=== PATIENT | male | born 1960 | race African-American/Black ===

== ENCOUNTER 2019-09-26 10:16 | Inpatient (IN) | payer BC ==
[~2019-09-26] VITALS: Ht 162.6 cm; Wt 86.3 kg
[~2019-09-26 10:16] MED LIST: MECL-75 PO
[2019-09-26 11:01] LABS: BASO # 0.1 x10^3/uL (0.0-0.2); BASO % 1 % (0-3); EOS # 0.2 x10^3/uL (0.0-0.7); EOS % 4 % (0-3); HEMATOCRIT 41.2 % (39.0-53.0); HEMOGLOBIN 13.7 g/dL (13.0-17.5); LYMPH # 2.4 x10^3/uL (1.0-4.8); LYMPH % 45 % (24-48); MEAN CORPUSCULAR HEMOGLOBIN 29 pg (25-35); MEAN CORPUSCULAR HGB CONC 33 g/dL (31-37); MEAN CORPUSCULAR VOLUME 89 fL (79-100); MONO # 0.6 x10^3/uL (0.0-1.1); MONO % 12 % (0-9); NEUT % 38 % (31-73); PLATELET COUNT 255 x10^3/uL (140-400); RED BLOOD COUNT 4.65 x10^6/uL (4.30-5.70); RED CELL DISTRIBUTION WIDTH 14.4 % (11.5-14.5); WHITE BLOOD COUNT 5.2 x10^3/uL (4.0-11.0)
[2019-09-26 11:13] LABS: CALCIUM 8.3 mg/dL (8.5-10.1); GFR 93.2; POTASSIUM 3.8 mmol/L (3.5-5.1)
[2019-09-26 11:19] LABS: ALBUMIN 3.5 g/dL (3.4-5.0); TOTAL BILIRUBIN 0.3 mg/dL (0.2-1.0); TOTAL PROTEIN 6.9 g/dL (6.4-8.2)
--- NOTE | 2019-09-26 11:19 | RAD ---
Study: CR PORTABLE CHEST 1V Indication: Shortness of air. Comparison: None. Findings: Poor inspiratory excursion with mild bronchovascular crowding. Ill-defined haziness at the left lung bases most suggestive of atelectasis. No layering effusion, dense consolidation or pneumothorax. Impression: Ill-defined haziness at the left lung base is most suggestive of discoid atelectasis. No radiographic findings of a typical pneumonia or overt congestive heart failure/volume overload. Electronically signed by: BRYAN FARIA MD (09/26/2019 11:16 AM) [id number]
[2019-09-26] MEDS ORDERED: IOHEXOL 350 MG/ML 100 ML VIAL. IV ONE (12:30)
[2019-09-26] MEDS ORDERED: CONTRAST GIVEN. MC PRN (12:45)
--- NOTE | 2019-09-26 13:43 | RAD ---
INDICATION: Chest pain COMPARISON: Chest x-ray earlier same day TECHNIQUE: Axial CT images obtained through the chest. Intravenous contrast utilized. Angiogram 3D images processed per protocol. One or more of the following individualized dose reduction techniques were utilized for this examination: 1. Automated exposure control; 2. Adjustment of the mA and/or kV according to patient size; 3. Use of iterative reconstruction technique. FINDINGS: No evidence of pneumothorax. Mild linear opacities which could be from atelectasis. There are some small lymph nodes within the mediastinum. There is little contrast within the thoracic aorta which limits evaluation of the lumen. No aneurysm is seen. Scattered calcific atherosclerosis. Bilateral peripheral pulmonary embolus is identified including at right lung base as well as left upper lobe. No extension into the main pulmonary arteries. At the right pulmonary hilum there is a borderline enlarged lymph node measuring 11 mm short axis. There is also prominent lymph node in the subcarinal region. Degenerative changes of spine. Mild compression deformity T12 IMPRESSION: Bilateral peripheral pulmonary embolus is identified. Report called to the ER at 1:35 PM on date of exam Electronically signed by: Carter Ashby MD (09/26/2019 1:40 PM) [id number]
--- NOTE | 2019-09-26 13:53 | PHYS DOC ---
Past Medical History Past Medical History: Anxiety, Depression Past Surgical History: No Surgical History Smoking Status: Never Smoker Alcohol Use: Occasionally Drug Use: Marijuana General Adult EDM: Chief Complaint: SHORTNESS OF BREATH HPI: HPI: Patient is a 59 year old male who presented to ER today for evaluation of right-sided chest pain with trouble breathing for about 10 days. Patient said he feels he could not catch his breath. Pain is sharp and stabbing in nature. Patient denies smoking but he admitted using marijuana. Patient denies any recent travel or operation, no family history of blood clot disorder. Patient has no personal history of blood clot disorder. Patient had no history of hypertension, no history of diabetes, no history of coronary artery disease. Review of Systems: Review of Systems: Constitutional: Denies fever or chills. [] Eyes: Denies change in visual acuity. [] HENT: Denies nasal congestion or sore throat. [] Respiratory: No cough, positive for trouble breathing Cardiovascular: Positive for chest pain. GI: Denies abdominal pain, nausea, vomiting, bloody stools or diarrhea. [] : Denies dysuria. [] Musculoskeletal: Denies back pain or joint pain. [] Integument: Denies rash. [] Neurologic: Denies headache, focal weakness or sensory changes. [] Endocrine: Denies polyuria or polydipsia. [] Lymphatic: Denies swollen glands. [] Psychiatric: Denies depression or anxiety. [] Heart Score: Risk Factors: Risk Factors: DM, Current or recent (<one month) smoker, HTN, HLP, family history of CAD, obesity. Risk Scores: Score 0 - 3: 2.5% MACE over next 6 weeks - Discharge Home Score 4 - 6: 20.3% MACE over next 6 weeks - Admit for Clinical Observation Score 7 - 10: 72.7% MACE over next 6 weeks - Early Invasive Strategies Current Medications: Current Medications Medications (Trade) Dose Ordered Sig/Angel Start Time Stop Time Status Last Admin Dose Admin Info (CONTRAST GIVEN -- Rx MONITORING) 1 each PRN DAILY PRN 09/26/19 12:45 09/28/19 12:44 Iohexol (Omnipaque 350 Mg/ml) 100 ml 1X ONCE 09/26/19 12:30 09/26/19 12:35 DC 09/26/19 13:00 100 ML Allergies: Allergies: Allergies Coded Allergies Type Severity Reaction Last Updated Verified No Known Drug Allergies 04/23/15 No Physical Exam: PE: Constitutional: Well developed, well nourished, no acute distress, non-toxic appearance. [] HENT: Normocephalic, atraumatic, bilateral external ears normal, oropharynx moist, no oral exudates, nose normal. [] Eyes: PERRLA, EOMI, conjunctiva normal, no discharge. [] Neck: Normal range of motion, no tenderness, supple, no stridor. [] Cardiovascular:Heart rate regular rhythm, no murmur [] Lungs & Thorax: Bilateral breath sounds clear to auscultation [] Abdomen: Bowel sounds normal, soft, no tenderness, no masses, no pulsatile masses. [] Skin: Warm, dry, no erythema, no rash. [] Back: No tenderness, no CVA tenderness. [] Extremities: No tenderness, no cyanosis, no clubbing, ROM intact, no edema. [] Neurologic: Alert and oriented X 3, normal motor function, normal sensory function, no focal deficits noted. [] Psychologic: Affect normal, judgement normal, mood normal. [] Current Patient Data: Labs: Laboratory Tests Test 09/26/19 10:45 White Blood Count 5.2 x10^3/uL (4.0-11.0) Red Blood Count 4.65 x10^6/uL (4.30-5.70) Hemoglobin 13.7 g/dL (13.0-17.5) Hematocrit 41.2 % (39.0-53.0) Mean Corpuscular Volume 89 fL (79-100) Mean Corpuscular Hemoglobin 29 pg (25-35) Mean Corpuscular Hemoglobin Concent 33 g/dL (31-37) Red Cell Distribution Width 14.4 % (11.5-14.5) Platelet Count 255 x10^3/uL (140-400) Neutrophils (%) (Auto) 38 % (31-73) Lymphocytes (%) (Auto) 45 % (24-48) Monocytes (%) (Auto) 12 % (0-9) H Eosinophils (%) (Auto) 4 % (0-3) H Basophils (%) (Auto) 1 % (0-3) Neutrophils # (Auto) 2.0 x10^3/uL (1.8-7.7) Lymphocytes # (Auto) 2.4 x10^3/uL (1.0-4.8) Monocytes # (Auto) 0.6 x10^3/uL (0.0-1.1) Eosinophils # (Auto) 0.2 x10^3/uL (0.0-0.7) Basophils # (Auto) 0.1 x10^3/uL (0.0-0.2) Sodium Level 140 mmol/L (136-145) Potassium Level 3.8 mmol/L (3.5-5.1) Chloride Level 106 mmol/L (98-107) Carbon Dioxide Level 25 mmol/L (21-32) Anion Gap 9 (6-14) Blood Urea Nitrogen 17 mg/dL (8-26) Creatinine 1.0 mg/dL (0.7-1.3) Estimated GFR (Cockcroft-Gault) 93.2 BUN/Creatinine Ratio 17 (6-20) Glucose Level 110 mg/dL (70-99) H Calcium Level 8.3 mg/dL (8.5-10.1) L Total Bilirubin 0.3 mg/dL (0.2-1.0) Aspartate Amino Transferase (AST) 24 U/L (15-37) Alanine Aminotransferase (ALT) 41 U/L (16-63) Alkaline Phosphatase 81 U/L (46-116) Troponin I Quantitative < 0.017 ng/mL (0.000-0.055) TT-Kry-D-Type Natriuretic Peptide 92 pg/mL (0-124) Total Protein 6.9 g/dL (6.4-8.2) Albumin 3.5 g/dL (3.4-5.0) Albumin/Globulin Ratio 1.0 (1.0-1.7) Laboratory Tests 09/26/19 10:45 Laboratory Tests 09/26/19 10:45 Vital Signs: Vital Signs Date Time Temp Pulse Resp B/P (MAP) Pulse Ox O2 Delivery O2 Flow Rate FiO2 09/26/19 12:52 98.6 60 137/75 (95) 96 98.6 09/26/19 11:32 Room Air 09/26/19 10:54 18 EKG: EKG: EKG was done at 1039, heart rate of 57 beats per minutes, sinus bradycardia, no ST segment elevation. Radiology/Procedures: Radiology/Procedures: [facility] [address] [place] [address] IMAGING REPORT Signed PATIENT: YEN LAMB ACCOUNT: [id number] : 1960 LOCATION: ER AGE: 59 SEX: M EXAM STATUS: REG ER ORD. PHYSICIAN: TIFFANIE CHOW DO REASON: right side chest pain, soa PROCEDURE: CT ANGIOGRAPHY CHEST INDICATION: Chest pain COMPARISON: Chest x-ray earlier same day TECHNIQUE: Axial CT images obtained through the chest. Intravenous contrast utilized. Angiogram 3D images processed per protocol. One or more of the following individualized dose reduction techniques were utilized for this examination: 1. Automated exposure control; 2. Adjustment of the mA and/or kV according to patient size; 3. Use of iterative reconstruction technique. FINDINGS: No evidence of pneumothorax. Mild linear opacities which could be from atelectasis. There are some small lymph nodes within the mediastinum. There is little contrast within the thoracic aorta which limits evaluation of the lumen. No aneurysm is seen. Scattered calcific atherosclerosis. Bilateral peripheral pulmonary embolus is identified including at right lung base as well as left upper lobe. No extension into the main pulmonary arteries. At the right pulmonary hilum there is a borderline enlarged lymph node measuring 11 mm short axis. There is also prominent lymph node in the subcarinal region. Degenerative changes of spine. Mild compression deformity T12 IMPRESSION: Bilateral peripheral pulmonary embolus is identified. Report called to the ER at 1:35 PM on date of exam Electronically signed by: Eric Mcfadden MD (09/26/2019 1:40 PM) [id number] DICTATED and SIGNED BY: ERIC MCFADDEN MD DATE: 09/26/19 1340 [facility] [address] [place] [address] IMAGING REPORT Signed PATIENT: YEN LAMB ACCOUNT: [id number] : 1960 LOCATION: ER AGE: 59 SEX: M EXAM STATUS: PRE ER ORD. PHYSICIAN: TIFFANIE CHOW DO REASON: SOA PROCEDURE: PORTABLE CHEST 1V Study: CR PORTABLE CHEST 1V Indication: Shortness of air. Comparison: None. Findings: Poor inspiratory excursion with mild bronchovascular crowding. Ill-defined haziness at the left lung bases most suggestive of atelectasis. No layering effusion, dense consolidation or pneumothorax. Impression: Ill-defined haziness at the left lung base is most suggestive of discoid atelectasis. No radiographic findings of a typical pneumonia or overt congestive heart failure/volume overload. Electronically signed by: BRYAN FARIA MD (09/26/2019 11:16 AM) [id number] DICTATED and SIGNED BY: BRYAN FARIA MD DATE: 09/26/19 1116 Course & Med Decision Making: Course & Med Decision Making Pertinent Labs and Imaging studies reviewed. (See chart for details) Patient is a 59-year-old male who was evaluated in the ER due to chest pain and trouble breathing. Patient was found to have bilateral PE, his heart rate also been slow in the 50 bpm, he will be admitted to hospital for further evaluation and treatment. Dragon Disclaimer: Dragon Disclaimer: This electronic medical record was generated, in whole or in part, using a voice recognition dictation system. Departure Departure Impression: Primary Impression: Pulmonary emboli Additional Impressions: Sinus bradycardia Chest pain Disposition: ADMITTED INPATIENT Admitting Physician: Hayden Mcfadden Condition: STABLE Referrals: HAYDEN MCFADDEN MD (PCP) TIFFANIE CHOW DO September 26, 2019 13:53
[2019-09-26] MEDS ORDERED: ONDANSETRON PF 4 MG/2 ML VIAL. IV PRN (14:45)
[2019-09-26 16:00] VITALS: BP 152/75
--- NOTE | 2019-09-26 16:00 | NUR ---
The patient, YEN LAMB, 59 y/o, M admitted by HAYDEN MCFADDEN MD, was given written information regarding hospital policies, unit procedures and contact persons. Valuables were checked and left with patient. Pt arrived to unit via gurney from ER. Pt ambulated to bed with standby assistance and c/o shortness of breath and back pain rated 6/10. VSS. Tele monitor applied, pt sinus logan. Dr. Mcfadden notified. Orders received. Call light within reach. Will continue to monitor.
--- NOTE | 2019-09-26 16:04 | EKG ---
[facility] [address] [place] [address] Test Date: 2019-09-26 Test Time: 10:38:05 Pat Name: YEN LAMB Department: Room: 209 1 Gender: M Shift Superintendent Caustic Cresylate: : 1960 Requested By: TIFFANIE CHOW Order Number: [id number] Reading MD: Terry Collazo Measurements Intervals [place] Rate: 57 P: IN: QRS: -19 QRSD: 88 T: 26 QT: 406 QTc: 398 Interpretive Statements ATRIAL FLUTTER LEFTWARD AXIS Electronically Signed On 09-27-2019 15:48:58 CDT by Terry Collazo
[2019-09-26] MEDS: HYDROcodone/APAP 7.5/325MG 1 TAB TABLET PO PRN ×2 (16:25→22:51)
[2019-09-26] MEDS ORDERED: ANTI-COAG MONITOR BY PHARMACY. MC PRN (16:30)
[2019-09-26] MEDS ORDERED: CLONAZEPAM1 MG PO (17:32)
[2019-09-26] MEDS ORDERED: ASPI-630 PO (17:32)
[2019-09-26] MEDS ORDERED: MIRT45TA53 PO (17:32)
[2019-09-26] MEDS ORDERED: RISP1TAB3 PO (17:32)
[2019-09-26] MEDS ORDERED: AMPH10TA PO (17:32)
[2019-09-26 19:00] VITALS: BP 138/72
[2019-09-26] MEDS: risperiDONE 1 MG TABLET. PO SCH (20:41)
[2019-09-26] MEDS: MIRTAZAPINE 15 MG TABLET PO SCH (20:42)
[2019-09-26 22:57] VITALS: BP 120/58
[2019-09-27 02:59] VITALS: BP 93/55
[2019-09-27 07:00] VITALS: BP 122/77
--- NOTE | 2019-09-27 08:39 | PDOC ---
Provider Note Provider Note dictated [id number] HAYDEN MCFADDEN MD September 27, 2019 08:39
[2019-09-27] MEDS ORDERED: clonazePAM 0.5 MG TABLET PO SCH ×2 (09:00→21:00)
[2019-09-27] MEDS ORDERED: ASPIRIN CHEWABLE 81 MG TABLET. PO SCH (09:00)
--- NOTE | 2019-09-27 09:03 | HP ---
ADMIT DATE: CHIEF COMPLAINT: Chest pain, shortness of breath. HISTORY OF PRESENT ILLNESS: A 59-year-old black male with no previous cardiopulmonary history has been off work for 2 months and fairly sedentary in the home. About a week ago, he started having increasing shortness of breath without actual exertional chest pain, cough, fever, hemoptysis or any other symptoms. He developed some right-sided mildly pleuritic chest pain about 2 days prior to admission with increasing dyspnea and came to the ER. He was found to have some degree of bradycardia, which has since resolved and then bilateral pulmonary emboli were seen on CTA. He has been on Lovenox since that time and feels about the same. There have been no anginal symptoms or orthopnea or any other particular symptoms including no pain or swelling in his legs, recent car or plane travel. PAST HISTORY: MEDICATIONS: He takes psych meds for bipolar disorder. ALLERGIES: He is not allergic to any drugs. MEDICAL HISTORY: He has no previous cardiac or pulmonary history. SOCIAL HISTORY: He is a nonsmoker. He is single, employed, nondrinker. FAMILY HISTORY: Unremarkable. REVIEW OF SYSTEMS: Unremarkable. OBJECTIVE: ENT: All within normal limits. NECK: No masses, nodes or bruits. LUNGS: Clear, without tachypnea or friction rub. Breath sounds are equal. CARDIOVASCULAR: Regular rate. Heart rate about 60. No murmur. ABDOMEN: Soft, benign and nontender. EXTREMITIES: No edema. No joint or skin lesions or palpable masses. Good pedal pulses bilaterally. NEUROLOGIC: Physiologic, nonfocal. ASSESSMENT: Bilateral pulmonary emboli with some secondary pleuritic chest pain. Bradycardia, which is seen in the ER has since resolved and is now more of a sinus bradycardia. Oxygen sats are good. This is likely from a two-month period of significant sedentary lifestyle as he has had no clots before. PLAN: Switch from Lovenox to Xarelto now as it looks likely he will not need a pacemaker. Check his TSH. Enquire the pharmacy regarding outpatient medication availability. HAYDEN MCFADDEN MD DR: FAY/bradford JOB#: [id number] / [id number]
[2019-09-27] MEDS: risperiDONE 1 MG TABLET. PO SCH ×2 (09:10→20:34)
--- NOTE | 2019-09-27 10:30 | PDOC2 ---
TRAVIS BHAKTA GROUP EXERCISE INSTRUCTOR 09/27/19 1030: CARDIAC CONSULT DATE OF CONSULT Date of Consult DATE: 09/27/19 TIME: 10:25 REASON FOR CONSULT Reason for Consult: bradycardia REFERRING PHYSICIAN Referring Physician: Dr. Ashby SOURCE Source: Chart review, Patient HISTORY OF PRESENT ILLNESS HISTORY OF PRESENT ILLNESS This is a 59 yo male who presented secondary to chest pain and shortness of breath. Patient reports shortness of breath for the last couple of weeks. Has progressively worsened. CTA chest notable for bilateral PE. Lovenox was initiated and has been transitioned to Xarelto. Has been bradycardiac, which p rompted this consult. Denies any dizziness, diaphoresis, nausea/vomiting, or syncopal episodes. No recent surgery or immobility. PAST MEDICAL HISTORY Pulmonary: Pulmonary embolus (current ) Psych: Anxiety, Depression PAST SURGICAL HISTORY Past Surgical History: No pertinent history FAMILY HISTORY Family History: Hypertension SOCIAL HISTORY Smoke: No ALCOHOL: social Drugs: None Lives: with Family CURRENT MEDICATIONS CURRENT MEDICATIONS Current Medications Medications (Trade) Dose Ordered Sig/Angel Route PRN Reason Start Time Stop Time Status Last Admin Dose Admin Iohexol (Omnipaque 350 Mg/ml) 100 ml 1X ONCE IV 09/26/19 12:30 09/26/19 12:35 DC 09/26/19 13:00 Enoxaparin Sodium (Lovenox 100mg Syringe) 86 mg 1X ONCE SQ 09/26/19 14:15 09/26/19 14:16 DC 09/26/19 14:31 Acetaminophen/ Hydrocodone Bitart (Lortab 7.5/325) 1 tab PRN Q4HRS PRN PO PAIN 09/26/19 16:15 09/26/19 22:51 Enoxaparin Sodium (Lovenox 100mg Syringe) 90 mg Q12HR SQ 09/26/19 23:00 09/27/19 08:40 DC 09/26/19 22:44 Risperidone (RisperDAL) 1 mg BID PO 09/26/19 21:00 09/27/19 09:10 Mirtazapine (Remeron) 45 mg QHS PO 09/26/19 21:00 09/26/19 20:42 ALLERGIES ALLERGIES: Coded Allergies: No Known Drug Allergies (Unverified , 04/23/15) ROS Review of System 14 point ROS conducted with pertinent positives noted above in HPI PHYSICAL EXAM General: Alert, Oriented X3, Cooperative, No acute distress HEENT: Atraumatic, Mucous membr. moist/pink Lungs: Clear to auscultation Heart: Regular rate (SR/SB) Abdomen: Soft, No tenderness Extremities: No edema, Normal pulses Neuro: Normal speech, Sensation intact Psych/Mental Status: Mental status NL, Mood NL MUSCULOSKELETAL: No joint tenderness VITALS/I&O VITALS/I&O: Vital Signs Date Time Temp Pulse Resp B/P (MAP) Pulse Ox O2 Delivery O2 Flow Rate FiO2 09/27/19 08:00 Room Air 09/27/19 07:00 98.0 56 16 122/77 (92) 95 98.0 I & O 09/26/19 09/26/19 09/27/19 15:00 23:00 07:00 Intake Total 200 ml 0 ml Balance 200 ml 0 ml LABS Lab: Laboratory Tests Test 09/26/19 10:45 09/26/19 14:45 White Blood Count 5.2 x10^3/uL (4.0-11.0) Red Blood Count 4.65 x10^6/uL (4.30-5.70) Hemoglobin 13.7 g/dL (13.0-17.5) Hematocrit 41.2 % (39.0-53.0) Mean Corpuscular Volume 89 fL (79-100) Mean Corpuscular Hemoglobin 29 pg (25-35) Mean Corpuscular Hemoglobin Concent 33 g/dL (31-37) Red Cell Distribution Width 14.4 % (11.5-14.5) Platelet Count 255 x10^3/uL (140-400) Neutrophils (%) (Auto) 38 % (31-73) Lymphocytes (%) (Auto) 45 % (24-48) Monocytes (%) (Auto) 12 % (0-9) H Eosinophils (%) (Auto) 4 % (0-3) H Basophils (%) (Auto) 1 % (0-3) Neutrophils # (Auto) 2.0 x10^3/uL (1.8-7.7) Lymphocytes # (Auto) 2.4 x10^3/uL (1.0-4.8) Monocytes # (Auto) 0.6 x10^3/uL (0.0-1.1) Eosinophils # (Auto) 0.2 x10^3/uL (0.0-0.7) Basophils # (Auto) 0.1 x10^3/uL (0.0-0.2) Sodium Level 140 mmol/L (136-145) Potassium Level 3.8 mmol/L (3.5-5.1) Chloride Level 106 mmol/L (98-107) Carbon Dioxide Level 25 mmol/L (21-32) Anion Gap 9 (6-14) Blood Urea Nitrogen 17 mg/dL (8-26) Creatinine 1.0 mg/dL (0.7-1.3) Estimated GFR (Cockcroft-Gault) 93.2 BUN/Creatinine Ratio 17 (6-20) Glucose Level 110 mg/dL (70-99) H Calcium Level 8.3 mg/dL (8.5-10.1) L Total Bilirubin 0.3 mg/dL (0.2-1.0) Aspartate Amino Transferase (AST) 24 U/L (15-37) Alanine Aminotransferase (ALT) 41 U/L (16-63) Alkaline Phosphatase 81 U/L (46-116) Troponin I Quantitative < 0.017 ng/mL (0.000-0.055) MN-Vti-R-Type Natriuretic Peptide 92 pg/mL (0-124) Total Protein 6.9 g/dL (6.4-8.2) Albumin 3.5 g/dL (3.4-5.0) Albumin/Globulin Ratio 1.0 (1.0-1.7) Coronavirus (COVID-19)(PCR) See separate report Laboratory Tests 09/26/19 10:45 Laboratory Tests 09/26/19 10:45 ASSESSMENT/PLAN ASSESSMENT/PLAN 1. Chest pain, bilateral PE. Treatment dosing Lovenox. Xarelto to be initiated. 2. Bradycardia, sinus. Lowest 43. Mean 58. No significant pauses. Appropriated chronotropic response 3. Depression, anxiety Recommendations Echo in process Lipids, TSH Avoid AV froy blocking agents Monitor tele Consider outpatient event monitor Supportive care JASON LICONA MD 09/27/19 2889: CARDIAC CONSULT ASSESSMENT/PLAN ASSESSMENT/PLAN Patient seen and examined. Agree with COMMUNITY SERVICES COORDINATOR's assessment and plan. CP prob pleuritic ND ruled out 2D echo showed normal LVF without any wall motion abnormalities Tele showed sinus logan episodes but no pauses were noted Agree with event monitor as outpatient LDL elevated 162 Start statin therapy Continue anticoagulation for PE Thank you for your consultation TRAVIS BHAKTA APRN September 27, 2019 10:30 JASON LICONA MD September 27, 2019 18:45
[2019-09-27 11:00] VITALS: BP 129/68
[2019-09-27 11:06] LABS: CHOLESTEROL/HDL RATIO 6.9
[2019-09-27] MEDS: RIVAROXABAN 15 MG TABLET. PO SCH ×2 (11:28→17:29)
--- NOTE | 2019-09-27 11:31 | CARD ---
MR#: [id number] Date of Study: 09/27/2019 Ordering Physician: JARRETT LONDONO, Referring Physician: JARRETT LONDONO, Tech: Soraya Palomino APPROVED REPORT EXAM: Two-dimensional and M-mode echocardiogram with Doppler and color Doppler. Other Information Quality : GoodHR: 54bpm INDICATION Arrhythmia Chest Pain Pulmonary Embolism, Bradycardia 2D DIMENSIONS Left Atrium(2D)3.9 (1.6-4.0cm)IVSd1.0 (0.7-1.1cm) Aortic Root(2D)3.4 (2.0-3.7cm)LVDd4.5 (3.9-5.9cm) LVOT Diameter2.0 (1.8-2.4cm)PWd1.2 (0.7-1.1cm) LVDs2.5 (2.5-4.0cm)FS (%) 44.4 % SV69.2 ml Aortic Valve AoV Peak Theodore.164.5cm/sAoV VTI34.5cm AO Peak GR.10.8mmHgLVOT VTI 25.57cm AO Mean GR.7mmHg Mitral Valve MV E Qpctwdnr94.0cm/sMV DECEL [id number] MV A Lzekimle12.0cm/sE/A Ratio1.9 TDI Lateral E' P. V15.19cm/sMedial E' P. V11.26cm/s E/Lateral E'4.5E/Medial E'6.0 Tricuspid Valve TR P. Vbykzfmw544ju/sRAP HPMXJQHS4qiPs TR Peak Gr.15awWqLNSU17hbTh Pulmonary Vein S1 Fgamcpzc09.2cm/sS2 Mocfjptt25.87cm/s D2 Aklnlejk35.9cm/sPVa [id number] LEFT VENTRICLE The left ventricle is normal size. There is borderline concentric left ventricular hypertrophy. The l eft ventricular systolic function is normal and the ejection fraction is within normal range. The Eje ction Fraction is 55-60%. Wall motion consistent with conduction abnormality. The left ventricular di astolic function and filling is normal for age. RIGHT VENTRICLE The right ventricle is normal size. There is normal right ventricular wall thickness. The right ventr icular systolic function is normal. There is an area of echodensity near the apex and a thrombus candelaria ot be excluded. ATRIA The left atrium size is normal. The right atrium size is normal. The interatrial septum is intact wit h no evidence for an atrial septal defect or patent foramen ovale as noted on 2-D or Doppler imaging. AORTIC VALVE The aortic valve is normal in structure and function. Doppler and Color Flow revealed trace aortic re gurgitation. There is no significant aortic valvular stenosis. MITRAL VALVE The mitral valve is normal in structure and function. There is no evidence of mitral valve prolapse. There is no mitral valve stenosis. Doppler and Color-flow revealed trace mitral regurgitation. TRICUSPID VALVE The tricuspid valve is normal in structure and function. Doppler and Color Flow revealed trace tricus pid regurgitation with an estimated PAP of 34 mmHg. There is no tricuspid valve stenosis. PULMONIC VALVE The pulmonic valve is not well visualized. Doppler and Color Flow revealed trace to mild pulmonic dewayne vular regurgitation. GREAT VESSELS The aortic root is normal in size. The IVC is normal in size and collapses >50% with inspiration. PERICARDIAL EFFUSION There is no evidence of significant pericardial effusion. Critical Notification Critical Value: No <Conclusion> The left ventricle is normal size. The left ventricular systolic function is normal and the ejection fraction is within normal range. The Ejection Fraction is 55-60%. The right ventricular systolic function is normal. There is an area of echodensity near the RV apex and a thrombus cannot be excluded. Doppler and Color Flow revealed trace aortic regurgitation. There is no significant aortic valvular stenosis. Doppler and Color-flow revealed trace mitral regurgitation. Doppler and Color Flow revealed trace tricuspid regurgitation with an estimated PAP of 34 mmHg. Signed by : Jarrett Londono MD Electronically Approved : 09/27/2019 11:31:28
--- NOTE | 2019-09-27 12:08 | NUR ---
SS following up with discharge planning. SS reviewed pt chart and discussed with pt RN. Pt is from home and is currently on room air. Pt is COVID19 negative. Pt had PE and was started on medications. SS will continue to follow for discharge planning.
--- NOTE | 2019-09-27 12:09 | NUR ---
IP: Pt is COVID negative.
[2019-09-27 15:00] VITALS: BP 123/62
[2019-09-27 19:29] VITALS: BP 154/81
[2019-09-27] MEDS: MIRTAZAPINE 15 MG TABLET PO SCH (20:34)
[2019-09-27 22:39] VITALS: BP 129/60
--- NOTE | 2019-09-28 01:54 | NUR ---
sinus logan hr 45. lcrn
[2019-09-28 02:38] VITALS: BP 102/58
[2019-09-28 06:31] VITALS: BP 148/84
--- NOTE | 2019-09-28 08:26 | PDOC ---
Provider Note Provider Note less dyspnea, doing well- vss, no notable logan- lipids discussed- will dc if xarelto covered HAYDEN MCFADDEN MD September 28, 2019 08:26
[2019-09-28] MEDS: RIVAROXABAN 15 MG TABLET. PO SCH (08:30)
[2019-09-28] MEDS ORDERED: ACETAMINOPHEN 325 MG TABLET. PO PRN (08:30)
[2019-09-28] MEDS: risperiDONE 1 MG TABLET. PO SCH (08:33)
[2019-09-28 11:23] VITALS: BP 138/70
--- NOTE | 2019-09-28 12:00 | NUR ---
DISCHARGE INSTRUCTIONS GIVEN, QUESTIONS AND CONCERNS ANSWERED, PATIENT VERBALIZED UNDERSTANDING OF DISCHARGE INFORMATION INCLUDING TAKING ALL MEDICATIONS INSTRUCTED AND FOLLOWING UP WITH HIS PRIMARY PROVIDER IN 1-2 WEEKS. SALINE LOCK REMOVED FROM PATIENTS' RIGHT WRIST AND BANDAGE APPLIED, ALL PERSONAL BELONGINGS GATHERED BY THE PATIENT AND PLACED IN BAGS FOR DISCHARGE. COUPON GIVEN TO PATIENT FOR 30 DAY SUPPLY OF XARELTO, PRESCRIPTION CALLED TO THE PHARMACY PER DR. MCFADDEN.
--- NOTE | 2019-09-28 12:45 | NUR ---
PATIENT LEAVES THE UNIT PER W/C AND ACCOMPANIED BY THIS SOLUTION MAKER, EMOTIONAL SUPPORT GIVEN, FOLLOW UP APPOINTMENTS ENCOURAGED.
--- NOTE | 2019-09-28 12:57 | DS ---
DATE OF DISCHARGE: 09/28/2019 HOSPITAL SUMMARY: A 59-year-old black male with a history of bipolar disorder, no cardiac or pulmonary history, came in with chest pain, shortness of breath and increasing dyspnea. He was found to have a normal chest x-ray and EKG, all of his labs were normal, but CTA showed evidence of bilateral pulmonary emboli present. He was started on Lovenox and then Xarelto and clinically has improved. TSH was normal as well in the blood. Cholesterol showed a total of 255 with LDL of 162 and HDL of 37 indicating Sarah 10% 10-year risk. He had mild sinus bradycardia, but no significant pauses and his echocardiogram was normal and it was felt that an event recorder would be worn for 2 weeks, but not likely to have severe enough bradycardia, consider a pacemaker at this time. It is likely that his recent significant sedentary lifestyle from the COVID virus has been contributing to risk of DVT as he has never had these in the past and has no other risk factors. He is feeling better and once the prescriptions were arranged to insurance, he is able to be followed as an outpatient. FINAL DIAGNOSES: 1. Bilateral pulmonary emboli, likely secondary to recent severe inactivity. 2. Hyperlipidemia, moderate. 3. Sinus bradycardia. OPERATIONS, PROCEDURES, COMPLICATIONS: None. CONSULTATIONS: Dr. Hayes's group. DISPOSITION: He will take Xarelto 15 mg twice a day for 2 weeks and then 20 mg once a day after for at least 3 months. We will start atorvastatin 20 mg daily for his lipid profile and followup lab in 6-8 weeks there. Lower cholesterol diet discussed. Activity as tolerated. We will follow up with him in 1 week. HAYDEN MCFADDEN MD DR: FAY/bradford JOB#: [id number] / [id number]
--- NOTE | 2019-09-28 13:10 | PDOC ---
TRAVIS BHAKTA APRN 09/28/19 1310: CARDIO Progress Notes Date and Time Date of Service 09/28/19 Time of Evaluation 1045 Subjective Subjective: No Chest Pain, No shortness of breath, No Palpitations Vitals Vitals Vital Signs Date Time Temp Pulse Resp B/P (MAP) Pulse Ox O2 Delivery O2 Flow Rate FiO2 09/28/19 11:23 97.6 54 18 138/70 (92) 95 Room Air 97.6 Weight Weight [ ] Input and Output Intake and Output Intake and Output 09/28/19 07:00 Intake Total 1150 ml Balance 1150 ml Intake Oral 1150 ml # Voids 1 Physical Exam HEENT: Neck Supple W Full Motion Chest: Symmetric LUNGS: Clear to Auscultation Heart: S1S2, RRR (SR) Abdomen: Soft N/T Extremities: No Edema Neurology: alert, oriented, follow commands Assessment Assessment 1. Chest pain, bilateral PE. Treatment dosing Lovenox. Xarelto to be initiated. 2. Bradycardia, sinus. Lowest 43. Mean 58. No significant pauses. Appropriated chronotropic response. Echo with preserved LV systolic function. Area of echodensity near the RV apex noted; thrombus cannot be excluded. 3. Depression, anxiety 4. Hyperlipidemia Recommendations Avoid AV froy blocking agents Statin therapy Outpatient event monitor arranged Continue anticoagulation for PE Supportive care JASON LICONA MD 09/29/19 0749: CARDIO Progress Notes Assessment Assessment Patient seen and examined 09/28/19. Agree with [employer]'s assessment and plan. Chest pain noncardiac and most probably pleuritic. 2D echo showed normal LV function. Telemetry did not show any significant pauses. Plan for event monitor as an outpatient. Continue anticoagulation for acute PE. TRAVIS BHAKTA APRN September 28, 2019 13:10 JASON LICONA MD September 29, 2019 07:49
== END 2019-09-28 12:45 | disposition home or self-care (01) | DRG 176 ==
LOC: ER 10:16 → 2 NORTH 14:45
PROVIDERS: ADMIT Family Medicine; ATTEND Family Medicine
DX: I26.99 Other pulmonary embolism without acute cor pulmonale (principal); M19.90 Unspecified osteoarthritis, unspecified site; E78.5 Hyperlipidemia, unspecified; R00.1 Bradycardia, unspecified; R07.81 Pleurodynia; F12.90 Cannabis use, unspecified, uncomplicated; F41.9 Anxiety disorder, unspecified; F32.9 Major depressive disorder, single episode, unspecified; Z20.828 Contact with and (suspected) exposure to other viral communicable diseases; Z79.01 Long term (current) use of anticoagulants; Z82.49 Family history of ischemic heart disease and other diseases of the circulatory system; Z86.711 Personal history of pulmonary embolism
CPT/HCPCS: 36415; 71045; 71275; 80053; 80061; 83880; 84443; 84484; 85025; 93005; 93306; 96372; J1650; Q9967; 99285-25; G0378; U0003-CS

== ENCOUNTER → 2019-12-08 | Outpatient (CLI) | payer BC ==
[~2019-12-08] MED LIST changes: +AMPH10TA PO; +ASPI-630 PO; +CLONAZEPAM1 MG PO; +MIRT45TA53 PO; +REGADENOSON 0.4 MG/5 ML DISP.SYRIN. IV ONE; +RISP1TAB3 PO
--- NOTE | 2019-12-08 15:54 | RAD ---
MR#: [id number] Date of Study: 12/08/2019 Ordering Physician: JASON LICONA Referring Physician: PETRA CARRILLO Tech: RT Andria Schwartz) (N) APPROVED REPORT Test Type: Pharmacological Stress Nurse/Tech: Mitzi Sinha RN Test Indications: Dyspnea on exertion Cardiac History: No known cardiac Medications: See Electronic Medical Record Medical History: Pulm. Embolism, See EMR. Resting ECG: SB Resting Heart Rate: 45 bpm Resting Blood Pressure: 114/72mmHg Pretest Chest Pain: No chest pain Nurse/Tech Notes Lungs CTA, Heart tones regular. Consent: The procedure was explained to the patient in lay terms. Informed consent was witnessed. Harrison eout was entered into Megathread. History and Stress Test performed by [facility]. Details Pharmacologic stress testing was performed using 0.4mg per 5ml of regadenoson given intravenously ove r 7-10 seconds. Stress Symptoms Dyspnea POST EXERCISE Reason for Termination: Infusion complete Max HR: 66 bpm Max Blood Pressure: 122/68mmHg Blood Pressure response to exercise: Normal blood pressure response during stress. Heart Rate response to exercise: WNL Chest Pain: No. Arrhythmia: No. ST Change: No. INTERPRETATION Stress EKG Conclusion: Baseline EKG showed sinus bradycardia. No ischemic changes at peak stress. N o arrhythmias. Imaging Protocol IMAGE PROTOCOL: Rest Tc-99m/stress Tc-99m 1 day Rest: Stress: Viability: Radiopharm.Tc99m [id number] Sestamibi Ajsg30yMk 33mCi Duration 15min. 15min. Img Date 12/08/2019 12/08/2019 Inj-Img [id number]. 60min. Rest Admin Site:IV - Right AntecubitalAdministrator:RT Andria Schwartz)(N) Stress Admin Site: IV - Right AntecubitalAdministrator: [facility] STRESS DATA End Diast. Vol.128.0mlAv. Heart Rate62.0bpm End Syst. Vol.36.0mlCO Index BSA0.0L/min Myocardial Nobh295.0gEject. Vpsubsgc97.0% Stress Rates Pk. Fill Rate3.13EDV/secLVtime Pk. Fill 167.10msec Pk. Empty Rate3.73ESV/secLVtime Pk. Prspd354.70msec / Pk. Fill1.95EDV/sec Stress Scores Regional WT0.00Summed WT0.00 Regional WM0.00Summed WM1.00 Study quality was good. Left Ventricular size was Normal at Rest and Stress. Lung uptake was . Left Ventricular ejection fraction is 70%. The rest and stress images show normal perfusion, normal contraction and thickening. LV Perf. Quant 17 Seg. SSS2.00 17 Seg. SRS0.00 17 Seg. SDS2.00 Stress Defect Extent (% LAD)0.00Rest Defect Extent (% LAD)0.00Rev. Defect Extent (% LAD)0.00 Stress Defect Extent (% LCX) 5.00Rest Defect Extent (% LCX)0.00Rev. Defect Extent (% LCX)0.00 Stress Defect Extent (% RCA)0.00Rest Defect Extent (% RCA)0.00Rev. Defect Extent (% RCA)0.00 Stress Defect Extent (% ANAYA)0.90Rest Defect Extent (% ANAYA)0.00Rev. Defect Extent (% ANAYA)0.00 Conclusion 1. Regadenoson cardioisotope stress test did not show any evidence of ischemia or infarct. 2. Normal left ventricular systolic function with ejection fraction calculated at 70%. 3. Low risk for cardiac events. Signed by : Jason Licona, Electronically Approved : 12/08/2019 15:53:58
== END | disposition home or self-care (01) ==
LOC: NM 13:12
PROVIDERS: ATTEND Internal Medicine Cardiovascular Disease
DX: R06.09 Other forms of dyspnea (principal); R00.1 Bradycardia, unspecified; Z86.711 Personal history of pulmonary embolism
CPT/HCPCS: 78452; 93017; A9500; J2785

== ENCOUNTER 2020-05-21 13:09 | Emergency (ER) | payer BC ==
[~2020-05-21] VITALS: Ht 162.6 cm; Wt 81.0 kg
[~2020-05-21 13:09] MED LIST changes: -REGADENOSON 0.4 MG/5 ML DISP.SYRIN. IV ONE; -RISP1TAB3 PO; +RISP1TAB88 PO
--- NOTE | 2020-05-21 14:37 | PHYS DOC ---
Past Medical History Past Medical History: Anxiety, Depression Past Surgical History: No Surgical History Smoking Status: Never Smoker Alcohol Use: Occasionally Drug Use: Marijuana General Adult EDM: Chief Complaint: MUSCLE SPASM/CRAMP HPI: HPI: Patient is a 60 year old male who presented to ER for evaluation back pain and spasm started about 2 weeks ago, denies any injury. Patient was tested positive for COVID-19 4 days ago. Patient denies any cough or fever, no trouble breathing. Patient described the pain on his back is spasming in nature. Patient denies any bowel or bladder incontinence. Review of Systems: Review of Systems: Constitutional: Denies fever or chills. [] Eyes: Denies change in visual acuity. [] HENT: Denies nasal congestion or sore throat. [] Respiratory: Denies cough or shortness of breath. [] Cardiovascular: Denies chest pain or edema. [] GI: Denies abdominal pain, nausea, vomiting, bloody stools or diarrhea. [] : Denies dysuria. [] Musculoskeletal: Positive for back pain, no joint pain Integument: Denies rash. [] Neurologic: Denies headache, focal weakness or sensory changes. [] Endocrine: Denies polyuria or polydipsia. [] Lymphatic: Denies swollen glands. [] Psychiatric: Denies depression or anxiety. [] Heart Score: Risk Factors: Risk Factors: DM, Current or recent (<one month) smoker, HTN, HLP, family hi story of CAD, obesity. Risk Scores: Score 0 - 3: 2.5% MACE over next 6 weeks - Discharge Home Score 4 - 6: 20.3% MACE over next 6 weeks - Admit for Clinical Observation Score 7 - 10: 72.7% MACE over next 6 weeks - Early Invasive Strategies Allergies: Allergies: Allergies Coded Allergies Type Severity Reaction Last Updated Verified No Known Drug Allergies 04/23/15 No Physical Exam: PE: Constitutional: Well developed, well nourished, no acute distress, non-toxic appearance. [] HENT: Normocephalic, atraumatic, bilateral external ears normal, oropharynx moist, no oral exudates, nose normal. [] Eyes: PERRLA, EOMI, conjunctiva normal, no discharge. [] Neck: Normal range of motion, no tenderness, supple, no stridor. [] Cardiovascular:Heart rate regular rhythm, no murmur [] Lungs & Thorax: Bilateral breath sounds clear to auscultation [] Abdomen: Bowel sounds normal, soft, no tenderness, no masses, no pulsatile masses. [] Skin: Warm, dry, no erythema, no rash. [] Back: No tenderness, no CVA tenderness. [] Extremities: No tenderness, no cyanosis, no clubbing, ROM intact, no edema. [] Neurologic: Alert and oriented X 3, normal motor function, normal sensory func tion, no focal deficits noted. [] Psychologic: Affect normal, judgement normal, mood normal. [] Current Patient Data: Labs: Laboratory Tests Test 05/21/20 14:57 White Blood Count 6.3 x10^3/uL Red Blood Count 4.93 x10^6/uL Hemoglobin 14.6 g/dL Hematocrit 43.8 % Mean Corpuscular Volume 89 fL Mean Corpuscular Hemoglobin 30 pg Mean Corpuscular Hemoglobin Concent 33 g/dL Red Cell Distribution Width 14.7 % Platelet Count 259 x10^3/uL Neutrophils (%) (Auto) 55 % Lymphocytes (%) (Auto) 31 % Monocytes (%) (Auto) 12 % Eosinophils (%) (Auto) 2 % Basophils (%) (Auto) 1 % Neutrophils # (Auto) 3.4 x10^3/uL Lymphocytes # (Auto) 2.0 x10^3/uL Monocytes # (Auto) 0.7 x10^3/uL Eosinophils # (Auto) 0.1 x10^3/uL Basophils # (Auto) 0.1 x10^3/uL Sodium Level 139 mmol/L Potassium Level 3.7 mmol/L Chloride Level 104 mmol/L Carbon Dioxide Level 25 mmol/L Anion Gap 10 Blood Urea Nitrogen 11 mg/dL Creatinine 1.0 mg/dL Estimated GFR (Cockcroft-Gault) 92.9 BUN/Creatinine Ratio 11 Glucose Level 92 mg/dL Calcium Level 9.4 mg/dL Magnesium Level 1.9 mg/dL Total Bilirubin 0.5 mg/dL Aspartate Amino Transf (AST/SGOT) 26 U/L Alanine Aminotransferase (ALT/SGPT) 53 U/L Alkaline Phosphatase 87 U/L Total Protein 8.2 g/dL Albumin 4.1 g/dL Albumin/Globulin Ratio 1.0 Lipase 119 U/L Current Medications Medications (Trade) Dose Ordered Sig/Angel Route PRN Reason Start Time Stop Time Status Last Admin Dose Admin Sodium Chloride 1,000 ml @ 1,000 mls/hr 1X ONCE IV 05/21/20 14:45 05/21/20 15:44 05/21/20 15:01 Vital Signs: Vital Signs Date Time Temp Pulse Resp B/P (MAP) Pulse Ox O2 Delivery O2 Flow Rate FiO2 05/21/20 13:25 76 98 Room Air EKG: EKG: [] Radiology/Procedures: Radiology/Procedures: [][facility] [address] [place] [address] IMAGING REPORT Signed PATIENT: YEN LAMB ACCOUNT: [id number] : 1960 LOCATION: ER AGE: 60 SEX: M EXAM STATUS: REG ER ORD. PHYSICIAN: TIFFANIE CHOW DO REASON: SOA, COVID -19 INFECTION PROCEDURE: CHEST AP ONLY EXAM: Chest, single view. HISTORY: Shortness of air. Covid 19. COMPARISON: None. FINDINGS: A frontal view of the chest obtained. There is stable diffuse interstitial prominence. There is no consolidation, pleural effusion or pneumothorax. The heart is normal in size. IMPRESSION: Stable diffuse interstitial prominence likely due to chronic interstitial changes. No consolidated infiltrate is seen. Electronically signed by: Agustina Tomlinson MD (05/21/2020 2:49 PM) [id number] DICTATED and SIGNED BY: AGUSTINA TOMLINSON MD DATE: 05/21/20 [id number] 0 Course & Med Decision Making: Course & Med Decision Making Pertinent Labs and Imaging studies reviewed. (See chart for details) Patient is a 60-year-old male who presented to ER for evaluation back cramping muscle cramping. Lab work was normal, chest x-ray normal. Patient was given IV fluid, there is no emergency condition at this time. Patient be discharged home. patient is currently infected with COVID-19. Dragon Disclaimer: Dragon Disclaimer: This electronic medical record was generated, in whole or in part, using a voice recognition dictation system. Departure Departure Impression: Primary Impression: Muscle pain, myofascial Disposition: 01 DC HOME SELF CARE/HOMELESS Condition: STABLE Referrals: HAYDEN MCFADDEN MD (PCP) follow up with your doctor as needed Patient Instructions: Muscle Cramps Additional Instructions: Thank you for visiting our Emergency Department. We appreciate you trusting us with your care. If any additional problems come up don't hesitate to return to visit us. Please follow up with your primary care provider so they can plan additional care if needed and know about the problem that you had. If symptoms worsen come back to the Emergency Department. Any concerning symptoms that start such as chest pain, shortness of air, weakness or numbness on one side of the body, running high fevers or any other concerning symptoms return to the ER. TIFFANIE CHOW DO May 21, 2020 14:37
[2020-05-21] MEDS ORDERED: IV NORMAL SALINE 1000ML BAG 1,000 ML IV ONE (14:45)
--- NOTE | 2020-05-21 14:51 | RAD ---
EXAM: Chest, single view. HISTORY: Shortness of air. Covid 19. COMPARISON: None. FINDINGS: A frontal view of the chest obtained. There is stable diffuse interstitial prominence. Ther e is no consolidation, pleural effusion or pneumothorax. The heart is normal in size. IMPRESSION: Stable diffuse interstitial prominence likely due to chronic interstitial changes. No con solidated infiltrate is seen. Electronically signed by: Agustina Breen MD (05/21/2020 2:49 PM) [id number]
[2020-05-21 15:11] LABS: BASO # 0.1 x10^3/uL (0.0-0.2); BASO % 1 % (0-3); EOS # 0.1 x10^3/uL (0.0-0.7); EOS % 2 % (0-3); HEMATOCRIT 43.8 % (39.0-53.0); HEMOGLOBIN 14.6 g/dL (13.0-17.5); LYMPH % 31 % (24-48); MEAN CORPUSCULAR HEMOGLOBIN 30 pg (25-35); MEAN CORPUSCULAR HGB CONC 33 g/dL (31-37); MEAN CORPUSCULAR VOLUME 89 fL (79-100); MONO # 0.7 x10^3/uL (0.0-1.1); MONO % 12 % (0-9); NEUT # 3.4 x10^3/uL (1.8-7.7); NEUT % 55 % (31-73); PLATELET COUNT 259 x10^3/uL (140-400); RED BLOOD COUNT 4.93 x10^6/uL (4.30-5.70); RED CELL DISTRIBUTION WIDTH 14.7 % (11.5-14.5); WHITE BLOOD COUNT 6.3 x10^3/uL (4.0-11.0)
[2020-05-21 15:17] LABS: CALCIUM 9.4 mg/dL (8.5-10.1); GFR 92.9; POTASSIUM 3.7 mmol/L (3.5-5.1)
[2020-05-21 15:23] LABS: ALBUMIN 4.1 g/dL (3.4-5.0); MAGNESIUM 1.9 mg/dL (1.8-2.4); TOTAL BILIRUBIN 0.5 mg/dL (0.2-1.0); TOTAL PROTEIN 8.2 g/dL (6.4-8.2)
[2020-05-21 16:08] VITALS: BP 150/70
== END 2020-05-21 15:55 | disposition home or self-care (01) ==
LOC: ER 13:09
DX: M79.10 Myalgia, unspecified site (principal); M54.9 Dorsalgia, unspecified; R25.2 Cramp and spasm
CPT/HCPCS: 36415; 71045; 80053; 83690; 83735; 85025; 96360; 99284; J7030

== ENCOUNTER 2020-12-26 13:46 | Emergency (ER) | payer BC ==
[~2020-12-26] VITALS: Ht 167.6 cm; Wt 79.0 kg
[2020-12-26] MEDS ORDERED: ACETAMINOPHEN 500 MG TABLET PO ONE (19:45)
[2020-12-26] MEDS ORDERED: DEXAMETHASONE SOD PHOS 4 MG/ML VIAL IVP ONE (19:45)
--- NOTE | 2020-12-26 19:57 | PHYS DOC ---
Past Medical History Past Medical History: Anxiety, Depression, Other Additional Past Medical Histor: History of COVID-19 and history of pulmonary embolism 2 years ago but not o Past Surgical History: No Surgical History Smoking Status: Never Smoker Alcohol Use: None Drug Use: Marijuana General Adult EDM: Chief Complaint: Right upper thoracic back pain for about 2 to 3 weeks HPI: HPI: 60-year-old male reports a history 2 years ago of a blood clot in his lungs he said, unknown etiology of this, he says that he was put on Eliquis or Xarelto and he says he only took it for about 6 weeks and then says "my doctor told me to never take it anymore", he says he had no symptoms for about 2 years but then about 3 to 4 weeks ago he had right upper back pain that he believes is similar to when he had a blood clot in the lung and reports some shortness of breath as well, no chest pain, pain worse with movement and says "it just feels like I cannot get comfortable", denies any fevers, chills, no coughing or hemoptysis, no night sweats, no leg pain or leg swelling, no known history of cardiac disease or thromboembolism otherwise in the legs. Review of Systems: Review of Systems: General: no fevers , no chills, no general weakness Eyes: no blurred vision, no diplopia Skin: no rashes Neck: no swelling, no neck stiffness, no neck pain Heme: no bleeding, no lymph node enlargement Ear/Nose/Throat: No sore throat, no runny nose, no hearing loss, no difficulty swallowing Cardiovascular: no Chest pain, no palpitations Respiratory: No dyspnea, no cough, no hemoptysis Gastrointestinal: No abdominal pain, no nausea, no vomiting, no diarrhea, no blood in stool Genitourinary: no dysuria, no hematuria Musculoskeletal: + back pain, no leg pain, no arm pain, no arthralgia Neurologic: no headaches, no dizziness, no focal numbness/tingling, no focal weakness Psych: no depression, no anxiety, no SI/HI *All review of systems are negative other than what is noted above Heart Score: C/O Chest Pain: No Risk Factors: Risk Factors: DM, Current or recent (<one month) smoker, HTN, HLP, family history of CAD, obesity. Risk Scores: Score 0 - 3: 2.5% MACE over next 6 weeks - Discharge Home Score 4 - 6: 20.3% MACE over next 6 weeks - Admit for Clinical Observation Score 7 - 10: 72.7% MACE over next 6 weeks - Early Invasive Strategies Current Medications: Current Medications Medications (Trade) Dose Ordered Sig/Angel Start Time Stop Time Status Last Admin Dose Admin Acetaminophen (Tylenol) 1,000 mg 1X ONCE 12/26/20 19:45 12/26/20 19:49 DC Dexamethasone Sodium Phosphate (Decadron) 10 mg 1X ONCE 12/26/20 19:45 12/26/20 19:49 DC Allergies: Allergies: Allergies Coded Allergies Type Severity Reaction Last Updated Verified No Known Drug Allergies 04/23/15 No Physical Exam: PE: Gen-well appearing, no acute distress Head: Normocephalic/Atraumatic ENT: atraumatic, PERRLA, EOMI, oropharynx clear Neck: supple, full ROM/strength, no JVD, no nuchal rigidity Lungs: no distress, speaks in full sentences, Clear to auscultation bilaterally CV: reg rate, rhythm, no murmus/rubs/gallops, peripheral pulses equal in all extremities Abdomen: soft/nontender, no guarding/rebound tenderness, no rigidity, non distended, normoactive bowel sounds Musculoskeletal: full ROM/strength in all extremities, atraumatic, no swelling Back: full range of motion/strength, there is no midline tenderness in the C, T, L-spine region but there is some parascapular tenderness on the right side Skin: intact, no rashes Lymph: no gross FRANCES Neuro: alert and oriented x 4, CN 2-12 grossly intact, Motor strength is 5/5 in all extremities, no focal sensory deficits, no focal ataxia, ambulatory with steady gait Psych: normal mood/affect Current Patient Data: Vital Signs: Vital Signs Date Time Temp Pulse Resp B/P (MAP) Pulse Ox O2 Delivery O2 Flow Rate FiO2 12/26/20 19:03 97.9 49 153/77 (96) 98 Room Air 97.9 EKG: EKG: [] Twelve-lead EKG was performed at 8:21 PM: Sinus bradycardia, rate is 48, there was nonischemic appearing EKG with normal axis and intervals Radiology/Procedures: Radiology/Procedures: [] Course & Med Decision Making: Course & Med Decision Making Pertinent Labs and Imaging studies reviewed. (See chart for details) [] 60-year-old male presents to the emergency department complaining of right- sided thoracic back pain of unknown etiology although I do suspect the likely etiology is myofascial strain, history of possible PE, will do a D-dimer level to rule out PE, Wells score is still low risk,, differential includes but not limited to pneumonia, unlikely ACS, PE, dissection, those do appear to be unlikely etiologies, will give him some Tylenol, Flexeril/steroids and possibly some Toradol once his kidney function is back, will closely monitor this patient, reevaluate examined him during work-up and determine best course of action as we get more data available Reevaluation at 1109pm: Feeling better, work-up here is negative including negative D-dimer level and symptoms improved, will be stable for discharge at this Patient was seen in the ED for back pain that resolved in the emergency department there is no apparent evidence of any emergency medical pathology at this time, patient was advised follow-up with their primary care provider /physician in the next 24-48 hours and to return to the ED before then if any new or worsening / concerning symptoms had developed. All questions and concerns were addressed at time of disposition Dragon Disclaimer: Dragon Disclaimer: This electronic medical record was generated, in whole or in part, using a voice recognition dictation system. Departure Departure Impression: Primary Impression: Upper back pain on right side Disposition: HOME / SELF CARE / HOMELESS Condition: IMPROVED Referrals: HAYDEN MCFADDEN MD (PCP) Within 48 hours Patient Instructions: Back Pain, Adult, Hypertension Additional Instructions: The good news is your test here were okay, we did a blood test to rule out a blood clot in your lungs, I believe that this is just musculoskeletal pain in your back, going to give you some pain medicine and muscle relaxant, want you to follow-up with your primary care doctor in the next 48 hours, return to the ER before then if any new or worsening/concerning symptoms develop Also, your blood pressure is elevated at the visit today, please have your doctor recheck that in the next 1 to 2 weeks, needs to be less than 140/90 Scripts Cyclobenzaprine Hcl (CYCLOBENZAPRINE HCL) 10 Mg Tablet 1 TAB PO TID, #21 TAB Prov: YASMINE KIGN MD 12/26/20 Hydrochlorothiazide (Hydrochlorothiazide) 25 Mg Tablet 25 MG PO DAILY for 30 Days, #30 TAB Prov: YASMINE KING MD 12/26/20 Naproxen Sodium (ANAPROX DS) 550 Mg Tablet 1 TAB PO PRN BID PRN for PAIN for 7 Days, #15 TAB 0 Refills Prov: YASMNIE KING MD 12/26/20 YASMINE KING MD Dec 26, 2020 19:57
[2020-12-26 20:02] LABS: BILIRUBIN,URINE NEGATIVE (NEG); CLARITY,URINE CLEAR; COLOR,URINE YELLOW; NITRITE,URINE NEGATIVE (NEG); PROTEIN,URINE NEGATIVE (NEG-TRACE); UROBILINOGEN,URINE 0.2 mg/dL (0.2 mg/dL)
[2020-12-26 20:08] LABS: BARBITURATES NEG (NEG); BENZODIAZEPINES NEG (NEG); CANNABINOIDS POS (NEG); COCAINE NEG (NEG); METHADONE NEG (NEG); OPIATES NEG (NEG); PHENCYCLIDINE NEG (NEG)
[2020-12-26 20:09] LABS: AMPHETAMINE/METHAMPHETAMINE NEG (NEG)
[2020-12-26 20:15] LABS: BACTERIA,URINE 0 /HPF (0-FEW); RBC,URINE RARE /HPF (0-2); WBC,URINE 0 /HPF (0-4)
[2020-12-26 20:16] LABS: BASO # 0.1 x10^3/uL (0.0-0.2); BASO % 1 % (0-3); EOS # 0.2 x10^3/uL (0.0-0.7); EOS % 2 % (0-3); HEMATOCRIT 43.1 % (39.0-53.0); HEMOGLOBIN 14.5 g/dL (13.0-17.5); LYMPH # 2.7 x10^3/uL (1.0-4.8); LYMPH % 39 % (24-48); MEAN CORPUSCULAR HEMOGLOBIN 30 pg (25-35); MEAN CORPUSCULAR HGB CONC 34 g/dL (31-37); MEAN CORPUSCULAR VOLUME 90 fL (79-100); MONO # 0.6 x10^3/uL (0.0-1.1); MONO % 9 % (0-9); NEUT # 3.4 x10^3/uL (1.8-7.7); NEUT % 49 % (31-73); PLATELET COUNT 276 x10^3/uL (140-400); RED BLOOD COUNT 4.81 x10^6/uL (4.30-5.70); RED CELL DISTRIBUTION WIDTH 14.5 % (11.5-14.5)
[2020-12-26 20:26] LABS: CREATININE 1.1 mg/dL (0.7-1.3); GFR 83.2; POTASSIUM 3.8 mmol/L (3.5-5.1)
[2020-12-26 20:32] LABS: ALBUMIN 3.8 g/dL (3.4-5.0); TOTAL BILIRUBIN 0.3 mg/dL (0.2-1.0); TOTAL PROTEIN 7.7 g/dL (6.4-8.2)
[2020-12-26] MEDS ORDERED: IOHEXOL 350 MG/ML 100 ML VIAL. IV ONE (20:45)
[2020-12-26] MEDS ORDERED: HYDR25TA10 PO (23:12)
[2020-12-26] MEDS ORDERED: NAPR-682 PO (23:12)
[2020-12-26] MEDS ORDERED: CYCL10TA2 PO (23:12)
[2020-12-26 23:34] VITALS: BP 141/60
--- NOTE | 2020-12-27 05:07 | EKG ---
[facility] [address] [place] [address] Test Date: 2020-12-26 Test Time: 20:21:13 Pat Name: YEN LAMB Department: Room: Gender: M Supervisor Metalizing: : 1960 Requested By: YASMINE KING Order Number: [id number] Reading MD: Measurements Intervals Letcher Rate: 46 P: 31 OR: 140 QRS: -21 QRSD: 90 T: 26 QT: 436 QTc: 382 Interpretive Statements No previous ECG available for comparison
== END 2020-12-26 23:35 | disposition home or self-care (01) ==
LOC: ER 13:46
DX: M54.6 Pain in thoracic spine (principal); R06.02 Shortness of breath; F32.9 Major depressive disorder, single episode, unspecified; F41.9 Anxiety disorder, unspecified
CPT/HCPCS: 36415; 80053; 80307; 81001; 83690; 83880; 84484; 85025; 85379; 93005; 96374; 99285; J1100

== ENCOUNTER → 2021-06-11 | Outpatient (CLI) | payer BC ==
[~2021-06-11] MED LIST changes: +CYCL10TA19 PO; +HYDR25TA10 PO; +NAPR-682 PO
--- NOTE | 2021-06-11 10:50 | RAD ---
EXAM: Cervical spine, 5 views. HISTORY: Radiculopathy. COMPARISON: None. FINDINGS: 5 views of the cervical spine are obtained. There is no significant listhesis. There is mul tilevel endplate remodeling and anterior spurring. There is mild disc space narrowing at C6-C7. There is multilevel facet arthropathy. There is foraminal stenosis primarily at C5-C6 and C6-C7. IMPRESSION: Multilevel degenerative change, primarily at the lower cervical levels. No acute osseous finding. Electronically signed by: Agustina Breen MD (06/11/2021 10:47 AM) [id number]
== END ==
LOC: RAD 10:09
PROVIDERS: ATTEND Physician Assistant Medical
DX: M47.22 Other spondylosis with radiculopathy, cervical region (principal); M48.02 Spinal stenosis, cervical region; M48.8X2 Other specified spondylopathies, cervical region; M46.02 Spinal enthesopathy, cervical region
CPT/HCPCS: 72050